=== PATIENT | male | born 1950 | race Caucasian/White ===

== ENCOUNTER 2017-05-03 20:13 | Emergency (ER) | payer MEDICARE ==
[2017-05-03] MEDS: CIPROFLOXACIN 400 MG in APPROPRIATE DILUENT 1 EA IV (00:04)
[2017-05-03] MEDS: GASTROGRAFIN SOLUTION 30ML PO (21:45)
[2017-05-03 21:48] LABS: BASO % 0.4 % (0.0-1.0); EOS # 0.1 10^3/uL (0.0-0.50); EOS % 1.6 % (0.0-3.0); HEMOGLOBIN 13.7 g/dl (14.0-18.0); IMMATURE GRANULOCYTE % 0.3 % (0-0); LYMPH % 26.7 % (24.0-44.0); MEAN CORPUSCULAR HEMOGLOBIN 30.2 pg (27.0-33.0); MEAN CORPUSCULAR HGB CONC 34.3 g/dl (32.0-36.5); MEAN CORPUSCULAR VOLUME 88.1 fl (80.0-96.0); MONO # 0.7 10^3/uL (0.0-0.8); MONO % 9.1 % (0.0-5.0); NEUTROPHILS # 4.7 10^3/uL (1.8-7.7); NEUTROPHILS % 61.9 % (36.0-66.0); PLATELET COUNT, AUTOMATED 197 10^3/uL (150-450); RED BLOOD COUNT 4.54 10^6/uL (4.30-6.10); RED CELL DISTRIBUTION WIDTH 12.5 % (11.5-14.5); WHITE BLOOD COUNT 7.6 10^3/uL (4.0-10.0)
[2017-05-03 22:07] LABS: ALBUMIN 4.1 GM/DL (3.2-5.2); ALBUMIN/GLOBULIN RATIO 1.21 (1.00-1.93); ALKALINE PHOSPHATASE 59 U/L (45-117); ALT/SGPT 27 U/L (12-78); ANION GAP 5 MEQ/L (8-16); AST/SGOT 20 U/L (7-37); BILIRUBIN,DIRECT 0.1 MG/DL (0.0-0.2); BILIRUBIN,TOTAL 0.4 MG/DL (0.2-1.0); BLOOD UREA NITROGEN 20 MG/DL (7-18); CALCIUM LEVEL 8.6 MG/DL (8.8-10.2); CARBON DIOXIDE LEVEL 27 MEQ/L (21-32); CHLORIDE LEVEL 110 MEQ/L (98-107); CREATININE FOR GFR 1.04 MG/DL (0.70-1.30); GLOMERULAR FILTRATION RATE > 60.0 (>49); GLUCOSE, FASTING 87 MG/DL (80-110); LIPASE 236 U/L (73-393); SODIUM LEVEL 142 MEQ/L (136-145); TOTAL PROTEIN 7.5 GM/DL (6.4-8.2)
[2017-05-03] MEDS: GASTROGRAFIN SOLUTION 30ML (Q9963) PO (22:10)
[2017-05-03 22:48] LABS: APPEARANCE, URINE CLEAR (CLEAR); BACTERIA, URINE AUTO NEGATIVE (NEGATIVE); BILIRUBIN, URINE AUTO NEGATIVE (NEGATIVE); BLOOD, URINE BLOOD NEGATIVE (NEGATIVE); COLOR, URINE YELLOW (YELLOW); GLUCOSE, URINE (UA) AUTO NEGATIVE (NEGATIVE); KETONE, URINE AUTO TRACE mg/dL (NEGATIVE); LEUKOCYTE ESTERASE, URINE AUTO NEGATIVE (NEGATIVE); MUCUS, URINE SMALL (NEGATIVE); NITRITE, URINE AUTO NEGATIVE (NEGATIVE); PROTEIN, URINE AUTO NEGATIVE (NEGATIVE); RBC, URINE AUTO 3 /HPF (0-3); SPECIFIC GRAVITY URINE AUTO 1.025 (1.002-1.035); SQUAMOUS EPITHELIAL CELL UR AU 0 /HPF (0-6); UROBILINOGEN, URINE AUTO 0.2 mg/dL (0.0-2.0); WBC, URINE AUTO 1 /HPF (0-3)
[2017-05-03] MEDS ORDERED: ISOVUE-370 76% 100ML VIAL (Q9967) As Ordered (22:48)
[2017-05-04] MEDS: metroNIDAZOLE 750 MG in APPROPRIATE DILUENT 1 EA IV (01:21)
== END 2017-05-04 02:22 | disposition home or self-care (01) ==
LOC: M ED 20:13
DX: K57.30 Diverticulosis of large intestine without perforation or abscess without bleeding (principal); N28.1 Cyst of kidney, acquired; N40.0 Benign prostatic hyperplasia without lower urinary tract symptoms; Z87.891 Personal history of nicotine dependence
CPT/HCPCS: Q9963

== ENCOUNTER → 2017-06-09 | Outpatient (REF) | payer MEDICARE | LOC: M LAB REF 13:29 | DX: Z01.89 Encounter for other specified special examinations (principal) | CPT/HCPCS: 86803 ==

== ENCOUNTER 2019-02-08 08:04 | Outpatient (RCR) | payer MEDICARE ==
[~2019-02-08 08:04] MED LIST: CIPR-249 PO; FLAG500T PO
== END 2019-02-11 ==
LOC: M PT 08:04
PROVIDERS: ATTEND Orthopaedic Surgery
DX: M75.41 Impingement syndrome of right shoulder (principal)

== ENCOUNTER → 2020-04-20 | Outpatient (CLI) | payer SELFPAY | LOC: M LABSMTC 13:40 | PROVIDERS: ATTEND Pediatrics | DX: Z20.822 Contact with and (suspected) exposure to COVID-19 (principal) ==

== ENCOUNTER → 2021-01-15 | Outpatient (CLI) | payer MEDICARE ==
--- NOTE | 2021-01-15 14:46 | REP ---
INDICATION: MASTODYNIA BRCA 2 POSITIVE. Tenderness left nipple for 1-2 months. COMPARISON: None. TECHNIQUE: Craniocaudal and mediolateral views of the left and right breast were obtained. 3D tomography was utilized. Targeted subareolar left breast sonography is performed. FINDINGS: Breast parenchyma is fat replaced. There is a normal appearing lymph node in the left axilla. No mass lesion is seen. No architectural distortion, dominant density, microcalcification, or worrisome skin change is apparent in either breast mammographically. On targeted left breast sonography in the retroareolar region. No cyst or mass is observed. IMPRESSION: BI-RADS category 1-mammographic and left breast sonographic findings. Clinical follow-up is advised. This mammogram was interpreted with the aid of an FDA-approved computer-aided detection system. The patient states that he has not had a clinical breast exam in over a year. <Electronically signed by Abdulaziz Vo > 01/15/21 [id number]
== END ==
LOC: M WHC 13:17
PROVIDERS: ATTEND Registered Nurse
DX: Z12.31 Encounter for screening mammogram for malignant neoplasm of breast (principal); N64.4 Mastodynia
CPT/HCPCS: 76642; 77066; G0279

== ENCOUNTER → 2021-03-21 | Outpatient (REF) | LOC: M LABSMTC 12:34 | PROVIDERS: ATTEND Pediatrics | DX: Z20.822 Contact with and (suspected) exposure to COVID-19 (principal) ==

== ENCOUNTER → 2021-04-04 | Outpatient (REF) | LOC: M LABSMTC 09:13 | PROVIDERS: ATTEND Pediatrics | DX: Z20.822 Contact with and (suspected) exposure to COVID-19 (principal) ==

== ENCOUNTER → 2022-02-14 | Outpatient (CLI) | payer MEDICARE | LOC: M LABSMTC 11:21 | PROVIDERS: ATTEND Anesthesiology | DX: Z01.812 Encounter for preprocedural laboratory examination (principal); Z20.822 Contact with and (suspected) exposure to COVID-19 ==

== ENCOUNTER 2022-02-19 07:23 | Day surgery (SDC) | payer MEDICARE ==
[~2022-02-19] VITALS: Ht 188 cm; Wt 124.2 kg
[~2022-02-19 07:23] MED LIST changes: +BSS IRR 500ML/OMIDRIA 4ML IRR BAG (OR ONLY) As Ordered ONE; +CEFUROXIME 1MG/0.1ML INTRACAMERAL INJ As Ordered ONE; +CIDA500T2 PO; +CYCLOPENTOLATE 1% OPHTH SOLN 2 ML BTL OD SCH; +ECOT81TA5 PO; +IRBE300T7 PO; +LIDOCAINE 1% 1ML PF SYRINGE (OR EYE CASES) As Ordered ONE; +MIDAZOLAM INJ 2MG/2ML VIAL (J2250 PER 1MG) As Ordered ONE; +OFLOXACIN 0.3 % (OCUFLOX) OPTH SOL 5ML OD SCH; +PHENYLEPHRINE 2.5% OPHTH SOL 2ML OD SCH; +PRAV40TA2 PO; +PROPARACAINE 0.5% OPHTH SOL 15ML OD ONE; +TROPICAMIDE 1% OPHTH SOLN 2ML OD SCH; +VITA100T91 PO; +VITMTA PO; +fentaNYL 100 MCG/2 ML INJECTION As Ordered ONE
[2022-02-19 10:15] VITALS: BP 167/80
== END 2022-02-19 10:36 | disposition home or self-care (01) ==
LOC: M SDC 07:23
PROVIDERS: ATTEND Ophthalmology
DX: H25.11 Age-related nuclear cataract, right eye (principal); I10 Essential (primary) hypertension; E78.5 Hyperlipidemia, unspecified; Z79.899 Other long term (current) drug therapy
CPT/HCPCS: 66984; 92015; J0697; J1097; J2250; J3010; V2632

== ENCOUNTER → 2022-03-12 | Outpatient (CLI) | payer MEDICARE ==
[~2022-03-12] MED LIST changes: -BSS IRR 500ML/OMIDRIA 4ML IRR BAG (OR ONLY) As Ordered ONE; -CEFUROXIME 1MG/0.1ML INTRACAMERAL INJ As Ordered ONE; -CYCLOPENTOLATE 1% OPHTH SOLN 2 ML BTL OD SCH; -LIDOCAINE 1% 1ML PF SYRINGE (OR EYE CASES) As Ordered ONE; -MIDAZOLAM INJ 2MG/2ML VIAL (J2250 PER 1MG) As Ordered ONE; -OFLOXACIN 0.3 % (OCUFLOX) OPTH SOL 5ML OD SCH; -PHENYLEPHRINE 2.5% OPHTH SOL 2ML OD SCH; -PROPARACAINE 0.5% OPHTH SOL 15ML OD ONE; -TROPICAMIDE 1% OPHTH SOLN 2ML OD SCH; -fentaNYL 100 MCG/2 ML INJECTION As Ordered ONE
== END ==
LOC: M PLALAB 08:46
PROVIDERS: ATTEND Physician Assistant
DX: R97.20 Elevated prostate specific antigen [PSA] (principal)

== ENCOUNTER 2022-10-23 10:37 | Day surgery (SDC) | payer MEDICARE ==
[~2022-10-23] VITALS: Ht 188 cm; Wt 118.8 kg
[~2022-10-23 10:37] MED LIST changes: +NS 1,000 ML IV ONE
[2022-10-23] MEDS ORDERED: propofoL 200 MG/20 ML VIAL As Ordered ONE ×2 (12:14→12:29)
[2022-10-23] MEDS ORDERED: LIDOCAINE 2% 100MG/5ML SDV (FOR ANES.) As Ordered ONE (12:14)
[2022-10-23 13:21] VITALS: BP 154/74; TEMP 97.3; O2SAT 96
== END 2022-10-23 11:45 | disposition home or self-care (01) ==
LOC: M OPP 10:37
PROVIDERS: ATTEND Surgery
DX: Z12.11 Encounter for screening for malignant neoplasm of colon (principal); D12.6 Benign neoplasm of colon, unspecified; K64.9 Unspecified hemorrhoids; K57.30 Diverticulosis of large intestine without perforation or abscess without bleeding; Z79.02 Long term (current) use of antithrombotics/antiplatelets; Z79.82 Long term (current) use of aspirin; Z79.899 Other long term (current) drug therapy; Z88.5 Allergy status to narcotic agent

== ENCOUNTER → 2024-11-16 | Outpatient (REF) | payer MEDICARE ==
[~2024-11-16] MED LIST changes: +IRBE300T25 PO; -IRBE300T7 PO; -NS 1,000 ML IV ONE; -PRAV40TA2 PO; +PRAV40TA85 PO
== END ==
LOC: M SMT 13:12
PROVIDERS: ATTEND Urology
DX: R97.20 Elevated prostate specific antigen [PSA] (principal); C61 Malignant neoplasm of prostate

== ENCOUNTER → 2024-11-16 | Outpatient (REF) | payer MEDICARE | LOC: M LABSMT 08:55 | PROVIDERS: ATTEND Urology | DX: Z53.9 Procedure and treatment not carried out, unspecified reason (principal) ==

== ENCOUNTER 2024-12-17 13:22 | Emergency (ER) | payer MEDICARE ==
[~2024-12-17] VITALS: Ht 185.4 cm; Wt 119.9 kg
[2024-12-17 14:23] LABS: BASO # 0.1 10^3/uL (0.0-0.2); BASO % 0.7 % (0.0-1.0); EOS # 0.0 10^3/uL (0.0-0.5); EOS % 0.5 % (0.0-3.0); LYMPH # 1.4 10^3/uL (1.5-5.0); LYMPH % 18.7 % (24.0-44.0); MONO # 0.5 10^3/uL (0.0-0.8); MONO % 6.6 % (2.0-8.0); NEUTROPHILS # 5.4 10^3/uL (1.5-8.5); NEUTROPHILS % 73.1 % (36.0-66.0); PLATELET COUNT, AUTOMATED 148 10^3/uL (150-450)
[2024-12-17 14:50] LABS: ALT/SGPT 29.0 U/L (7.0-40); AST/SGOT 25.0 U/L (<34); CALCIUM LEVEL 9.3 MG/DL (8.3-10.6); CARBON DIOXIDE LEVEL 28.0 MMOL/L (20-31); CHLORIDE LEVEL 103.0 MMOL/L (98-107); CK-MB VALUE MASS 4.3 NG/ML (<3.6); CREATININE FOR GFR 0.99 MG/DL (0.70-1.30); GLOMERULAR FILTRATION RATE 80.9 (>42); POTASSIUM SERUM 4.2 MMOL/L (3.5-5.1); SODIUM LEVEL 141.0 MMOL/L (136-145)
[2024-12-17 14:53] LABS: CPK CREATINE PHOSPHOKINASE 135.0 U/L (46-171); MB/CK RELATIVE INDEX 3.18 (< OR =4)
[2024-12-17 16:06] LABS: CK-MB VALUE MASS 3.8 NG/ML (<3.6)
[2024-12-17 16:17] LABS: CPK CREATINE PHOSPHOKINASE 124.0 U/L (46-171); MB/CK RELATIVE INDEX 3.06 (< OR =4)
[2024-12-17] MEDS ORDERED: ROSU10TA61 (16:40)
[2024-12-17] MEDS ORDERED: OLME40TA (16:40)
[2024-12-17 16:45] VITALS: BP 170/73; O2SAT 96
[2024-12-17] MEDS ORDERED: AMLO25TA PO (16:48)
[2024-12-17 17:01] VITALS: TEMP 97.4
== END 2024-12-17 17:04 | disposition home or self-care (01) ==
LOC: M ED 13:22
DX: R07.9 Chest pain, unspecified (principal); I10 Essential (primary) hypertension; C61 Malignant neoplasm of prostate; E78.5 Hyperlipidemia, unspecified; Z79.82 Long term (current) use of aspirin; Z79.899 Other long term (current) drug therapy

== ENCOUNTER → 2024-12-24 | Outpatient (CLI) | payer MEDICARE ==
[~2024-12-24] MED LIST changes: +AMLO25TA PO; +ISOVUE-370 76% 100 ML VIAL As Ordered ONE; +OLME40TA; +ROSU10TA61
== END ==
LOC: M RAD 10:45
PROVIDERS: ATTEND Urology
DX: C61 Malignant neoplasm of prostate (principal); N28.89 Other specified disorders of kidney and ureter; N32.89 Other specified disorders of bladder
CPT/HCPCS: 74177; 78306; A9503; Q9967